=== PATIENT | female | born 1950 | race Caucasian/White ===

== ENCOUNTER → 2025-09-12 | Outpatient (CLI) | payer OTHER | END | disposition home or self-care (01) | LOC: RAD 09:54 | PROVIDERS: ATTEND Orthopaedic Surgery | DX: M17.12 Unilateral primary osteoarthritis, left knee (principal); M25.562 Pain in left knee; M11.262 Other chondrocalcinosis, left knee; M25.462 Effusion, left knee | CPT/HCPCS: 73562-LT ==